=== PATIENT | male | born 1940 | race Caucasian/White ===

== ENCOUNTER → 2016-07-18 | Outpatient (CLI) | payer MEDICARE ==
[2016-07-18 13:20] LABS: MEAN CORPUSCULAR HEMOGLOBIN 30.7 pg (27.0-33.0); MEAN CORPUSCULAR HGB CONC 33.9 g/dl (32.0-36.5); MEAN CORPUSCULAR VOLUME 90.4 fl (80.0-96.0); RED CELL DISTRIBUTION WIDTH 12.2 % (11.5-14.5); WHITE BLOOD COUNT 6.4 K/mm3 (4.0-10.0)
[2016-07-18 13:37] LABS: ALBUMIN 3.9 GM/DL (3.2-5.2); ALBUMIN/GLOBULIN RATIO 1.56 (1.00-1.93); ALKALINE PHOSPHATASE 72 U/L (45-117); ALT/SGPT 29 U/L (12-78); ANION GAP 8 MEQ/L (8-16); AST/SGOT 19 U/L (15-37); BILIRUBIN,TOTAL 0.6 MG/DL (0.2-1.0); BLOOD UREA NITROGEN 16 MG/DL (7-18); CALCIUM LEVEL 8.8 MG/DL (8.8-10.2); CARBON DIOXIDE LEVEL 29 MEQ/L (21-32); CHLORIDE LEVEL 106 MEQ/L (98-107); CREATININE FOR GFR 0.92 MG/DL (0.70-1.30); GLOMERULAR FILTRATION RATE > 60.0 (>42); GLUCOSE, FASTING 96 MG/DL (83-110); POTASSIUM SERUM 4.3 MEQ/L (3.5-5.1); SODIUM LEVEL 143 MEQ/L (136-145); TOTAL PROTEIN 6.4 GM/DL (6.4-8.2)
== END ==
LOC: M SMT 10:46
PROVIDERS: ATTEND Family Medicine
DX: D64.9 Anemia, unspecified (principal); N39.0 Urinary tract infection, site not specified; N40.0 Benign prostatic hyperplasia without lower urinary tract symptoms

== ENCOUNTER → 2016-08-16 | Outpatient (CLI) | payer MEDICARE | LOC: M SMT 13:13 | PROVIDERS: ATTEND Family Medicine | DX: R97.20 Elevated prostate specific antigen [PSA] (principal); N40.0 Benign prostatic hyperplasia without lower urinary tract symptoms ==

== ENCOUNTER → 2016-09-27 | Outpatient (CLI) | payer MEDICARE | LOC: M SMT 09:19 | PROVIDERS: ATTEND Urology | DX: R97.20 Elevated prostate specific antigen [PSA] (principal); N40.0 Benign prostatic hyperplasia without lower urinary tract symptoms ==

== ENCOUNTER → 2016-10-04 | Outpatient (CLI) | payer MEDICARE, BC | LOC: M SMT 10:15 | PROVIDERS: ATTEND Nurse Practitioner Family | DX: R97.20 Elevated prostate specific antigen [PSA] (principal) ==

== ENCOUNTER → 2016-10-16 | Outpatient (REF) | payer MEDICARE, BC | LOC: M SMT 12:45 | PROVIDERS: ATTEND Nurse Practitioner Family | DX: N40.0 Benign prostatic hyperplasia without lower urinary tract symptoms (principal) ==

== ENCOUNTER → 2017-04-06 | Outpatient (CLI) | payer MEDICARE, BC ==
[2017-04-07 14:17] LABS: PSA FREE 1.07 ng/mL; PSA TOTAL 5.1 ng/mL (0.0-4.0)
== END ==
LOC: M SMT 11:34
PROVIDERS: ATTEND Nurse Practitioner Family
DX: R97.20 Elevated prostate specific antigen [PSA] (principal)

== ENCOUNTER 2017-08-23 12:34 | Outpatient (CLI) | payer MEDICARE | END 2017-08-24 | LOC: M RAD 08-24 14:55 | DX: S46.211A Strain of muscle, fascia and tendon of other parts of biceps, right arm, initial encounter (principal); Y92.89 Other specified places as the place of occurrence of the external cause; Y93.9 Activity, unspecified | CPT/HCPCS: 73218 ==

== ENCOUNTER → 2018-04-08 | Outpatient (CLI) | payer MEDICARE ==
[2018-04-10 08:07] LABS: PSA % FREE 30.7 % (.); PSA FREE 1.87 ng/mL; PSA TOTAL 6.1 ng/mL (0.0-4.0)
== END ==
LOC: M SMT 11:25
DX: N40.0 Benign prostatic hyperplasia without lower urinary tract symptoms (principal)
CPT/HCPCS: 84154

== ENCOUNTER → 2018-05-02 | Outpatient (CLI) | payer MEDICARE | LOC: M SMT 15:22 | DX: R10.9 Unspecified abdominal pain (principal); D64.9 Anemia, unspecified; R53.83 Other fatigue | CPT/HCPCS: 71046 ==

== ENCOUNTER → 2018-05-03 | Outpatient (CLI) | payer MEDICARE ==
[2018-05-03 11:54] LABS: HEMATOCRIT 44.1 % (42.0-52.0); HEMOGLOBIN 14.7 g/dl (13.5-17.5); MEAN CORPUSCULAR HEMOGLOBIN 30.3 pg (27.0-33.0); MEAN CORPUSCULAR HGB CONC 33.3 g/dl (32.0-36.5); MEAN CORPUSCULAR VOLUME 90.9 fl (80.0-96.0); PLATELET COUNT, AUTOMATED 196 10^3/uL (150-450); RED BLOOD COUNT 4.85 10^6/uL (4.30-6.10); RED CELL DISTRIBUTION WIDTH 12.2 % (11.5-14.5)
[2018-05-03 12:06] LABS: APPEARANCE, URINE CLEAR (CLEAR); BACTERIA, URINE AUTO NEGATIVE (NEGATIVE); BILIRUBIN, URINE AUTO NEGATIVE (NEGATIVE); BLOOD, URINE BLOOD 2+ (NEGATIVE); COLOR, URINE YELLOW (YELLOW); GLUCOSE, URINE (UA) AUTO NEGATIVE (NEGATIVE); KETONE, URINE AUTO NEGATIVE (NEGATIVE); LEUKOCYTE ESTERASE, URINE AUTO NEGATIVE (NEGATIVE); MUCUS, URINE SMALL (NEGATIVE); NITRITE, URINE AUTO NEGATIVE (NEGATIVE); PROTEIN, URINE AUTO NEGATIVE (NEGATIVE); RBC, URINE AUTO 2 /HPF (0-3); SPECIFIC GRAVITY URINE AUTO 1.018 (1.002-1.035); SQUAMOUS EPITHELIAL CELL UR AU 0 /HPF (0-6); UROBILINOGEN, URINE AUTO 0.2 mg/dL (0.0-2.0); WBC, URINE AUTO 1 /HPF (0-3)
[2018-05-03 12:20] LABS: ESTIMATED AVERAGE GLUCOSE 117 MG/DL (60-110); HEMOGLOBIN A1c 5.7 %
[2018-05-03 16:03] LABS: ALBUMIN/GLOBULIN RATIO 1.48 (1.00-1.93); ALKALINE PHOSPHATASE 63 U/L (45-117); ALT/SGPT 31 U/L (12-78); AMYLASE 69 U/L (25-115); ANION GAP 8 MEQ/L (8-16); AST/SGOT 19 U/L (7-37); BILIRUBIN,TOTAL 0.7 MG/DL (0.2-1.0); BLOOD UREA NITROGEN 17 MG/DL (7-18); CALCIUM LEVEL 8.6 MG/DL (8.8-10.2); CARBON DIOXIDE LEVEL 28 MEQ/L (21-32); CHLORIDE LEVEL 104 MEQ/L (98-107); CREATININE FOR GFR 1.03 MG/DL (0.70-1.30); GLOMERULAR FILTRATION RATE > 60.0 (>42); GLUCOSE, FASTING 93 MG/DL (70-100); POTASSIUM SERUM 4.2 MEQ/L (3.5-5.1); PSA SCREENING 6.88 NG/ML (< 4.0); SODIUM LEVEL 140 MEQ/L (136-145); TOTAL PROTEIN 6.7 GM/DL (6.4-8.2)
== END ==
LOC: M SMT 08:24
DX: R10.9 Unspecified abdominal pain (principal); D64.9 Anemia, unspecified; R53.83 Other fatigue; M51.36 Other intervertebral disc degeneration, lumbar region; Z12.5 Encounter for screening for malignant neoplasm of prostate
CPT/HCPCS: 82150

== ENCOUNTER → 2018-05-09 | Outpatient (CLI) | payer MEDICARE ==
[~2018-05-09] MED LIST: ISOVUE-370 76% 100ML VIAL (Q9967) As Ordered
== END ==
LOC: M RAD 08:35
DX: R10.11 Right upper quadrant pain (principal); R19.01 Right upper quadrant abdominal swelling, mass and lump
CPT/HCPCS: Q9967

== ENCOUNTER → 2018-12-26 | Outpatient (CLI) | payer MEDICARE ==
[2018-12-26 13:23] LABS: HEMATOCRIT 43.7 % (42.0-52.0); HEMOGLOBIN 14.7 g/dl (13.5-17.5); MEAN CORPUSCULAR HEMOGLOBIN 30.8 pg (27.0-33.0); MEAN CORPUSCULAR HGB CONC 33.6 g/dl (32.0-36.5); MEAN CORPUSCULAR VOLUME 91.6 fl (80.0-96.0); PLATELET COUNT, AUTOMATED 178 10^3/uL (150-450); RED BLOOD COUNT 4.77 10^6/uL (4.30-6.10); WHITE BLOOD COUNT 5.5 10^3/uL (4.0-10.0)
[2018-12-26 13:43] LABS: ALBUMIN 3.7 GM/DL (3.2-5.2); ALT/SGPT 26 U/L (12-78); BILIRUBIN,TOTAL 0.7 MG/DL (0.2-1.0); BLOOD UREA NITROGEN 18 MG/DL (7-18); CALCIUM LEVEL 8.9 MG/DL (8.8-10.2); CARBON DIOXIDE LEVEL 29 MEQ/L (21-32); CHLORIDE LEVEL 105 MEQ/L (98-107); CHOLESTEROL LEVEL 132 MG/DL (<200); CREATININE FOR GFR 1.03 MG/DL (0.70-1.30); GLOMERULAR FILTRATION RATE > 60.0 (>42); GLUCOSE, FASTING 93 MG/DL (70-100); HDL CHOLESTEROL 44 MG/DL (>40); LDL CHOLESTEROL 71 MG/DL (<100); NON-HDL-C 88 MG/DL; POTASSIUM SERUM 4.6 MEQ/L (3.5-5.1); PROSTATIC SPECIFIC AG MONITOR 4.51 NG/ML (< 4.00); SODIUM LEVEL 139 MEQ/L (136-145); TESTOSTERONE 665 NG/DL (241-827); THYROID STIMULATING HORMONE 0.797 uIU/ML (0.358-3.740); TOTAL 25(OH) VITAMIN D 23.1 NG/ML (30.0-100.0); TOTAL PROTEIN 6.4 GM/DL (6.4-8.2); TRIGLYCERIDES LEVEL 86 MG/DL (<150)
[2018-12-26 14:19] LABS: HEMOGLOBIN A1c 5.8 %
== END ==
LOC: M SMT 09:11
PROVIDERS: ATTEND Family Medicine
DX: I10 Essential (primary) hypertension (principal); R53.83 Other fatigue; E03.9 Hypothyroidism, unspecified

== ENCOUNTER → 2019-03-28 | Outpatient (REF) | payer MEDICARE | LOC: M LAB REF 10:00 | PROVIDERS: ATTEND Physician Assistant Medical | DX: N39.0 Urinary tract infection, site not specified (principal) ==

== ENCOUNTER → 2019-05-30 | Outpatient (REF) | payer MEDICARE ==
[2019-06-03 10:07] LABS: PSA FREE 1.32 ng/mL
== END ==
LOC: M SMT 18:53 → M LABDRWAD 18:53
PROVIDERS: ATTEND Urology
DX: R97.20 Elevated prostate specific antigen [PSA] (principal)
CPT/HCPCS: 84154; G0463

== ENCOUNTER → 2020-04-01 | Outpatient (CLI) | payer MEDICARE | LOC: M LABSMTC 10:02 | PROVIDERS: ATTEND Orthopaedic Surgery | DX: Z01.812 Encounter for preprocedural laboratory examination (principal); Z20.828 Contact with and (suspected) exposure to other viral communicable diseases ==

== ENCOUNTER → 2020-06-01 | Outpatient (REF) | payer MEDICARE ==
[2020-06-08 19:07] LABS: PSA % FREE 17.4 % (.); PSA FREE 1.13 ng/mL; PSA TOTAL 6.5 ng/mL (0.0-4.0)
== END ==
LOC: M SFHCADAM 13:05
PROVIDERS: ATTEND Nurse Practitioner Women's Health
DX: R97.20 Elevated prostate specific antigen [PSA] (principal)

== ENCOUNTER → 2020-09-22 | Outpatient (CLI) | payer MEDICARE ==
--- NOTE | 2020-09-22 11:11 | REP ---
INDICATION: HTN. COMPARISON: PA and lateral chest dated 05/02/2018. TECHNIQUE: Upright PA and lateral chest. FINDINGS: The lung dodge are clear. Cardiac size is normal. The neri, mediastinum and skeletal structures are unremarkable. IMPRESSION: Essentially negative PA and lateral chest There is no interval change. <Electronically signed by Mayco Nolen > 09/22/20 [id number]
[2020-09-22 12:56] LABS: HEMATOCRIT 44.4 % (42.0-52.0); HEMOGLOBIN 14.5 g/dl (13.5-17.5); MEAN CORPUSCULAR HEMOGLOBIN 30.3 pg (27.0-33.0); MEAN CORPUSCULAR HGB CONC 32.7 g/dl (32.0-36.5); MEAN CORPUSCULAR VOLUME 92.9 fl (80.0-96.0); PLATELET COUNT, AUTOMATED 175 10^3/uL (150-450); RED BLOOD COUNT 4.78 10^6/uL (4.30-6.10); WHITE BLOOD COUNT 7.5 10^3/uL (4.0-10.0)
[2020-09-22 14:14] LABS: ALBUMIN 3.9 GM/DL (3.2-5.2); ALT/SGPT 25 U/L (12-78); BILIRUBIN,TOTAL 0.6 MG/DL (0.2-1.0); BLOOD UREA NITROGEN 21 MG/DL (7-18); CALCIUM LEVEL 9.2 MG/DL (8.8-10.2); CARBON DIOXIDE LEVEL 28 MEQ/L (21-32); CHLORIDE LEVEL 104 MEQ/L (98-107); CHOLESTEROL LEVEL 161 MG/DL (<200); CHOLESTEROL RISK RATIO 2.596 (<5); CREATININE FOR GFR 0.81 MG/DL (0.70-1.30); GLOMERULAR FILTRATION RATE > 60.0 (>42); GLUCOSE, FASTING 96 MG/DL (70-100); HDL CHOLESTEROL 62 MG/DL (>40); LDL CHOLESTEROL 86 MG/DL (<100); NON-HDL-C 99 MG/DL; POTASSIUM SERUM 4.3 MEQ/L (3.5-5.1); PROSTATIC SPECIFIC AG MONITOR 5.18 NG/ML (< 4.00); SODIUM LEVEL 138 MEQ/L (136-145); TESTOSTERONE 594 NG/DL (241-827); THYROID STIMULATING HORMONE 0.798 uIU/ML (0.358-3.740); TOTAL PROTEIN 6.4 GM/DL (6.4-8.2); TRIGLYCERIDES LEVEL 63 MG/DL (<150)
[2020-09-22 15:04] LABS: HEMOGLOBIN A1c 5.5 %
== END ==
LOC: M ADAMS 08:31
PROVIDERS: ATTEND Family Medicine
DX: R97.20 Elevated prostate specific antigen [PSA] (principal); R53.83 Other fatigue; E03.9 Hypothyroidism, unspecified; I10 Essential (primary) hypertension; Z79.899 Other long term (current) drug therapy

== ENCOUNTER → 2020-10-11 | Outpatient (CLI) | payer MEDICARE ==
--- NOTE | 2020-10-11 22:03 | ECGEPIP ---
[facility] Test Date: 2020-10-11 Pat Name: TENNILLE LARA Department: Room: - Gender: Male Park Manager: [place] : 1940 Requested By: Vivian Lara Order Number: [id number] Reading MD: Zi King Measurements Intervals [place] Rate: 63 P: 65 UT: 164 QRS: 4 QRSD: 78 T: 43 QT: 386 QTc: 395 Interpretive Statements Normal sinus rhythm LA conduction disturbance Somewhat low voltages with slow precordial R wave progression and minuscule i inferior Q waves; body habitus versus pulmonary disease No significant change from 04/04/16 Electronically Signed on 10-11-2020 22:02:44 EDT by Zi King
== END ==
LOC: M EKG 13:38
PROVIDERS: ATTEND Family Medicine
DX: R53.83 Other fatigue (principal); E78.5 Hyperlipidemia, unspecified; I10 Essential (primary) hypertension; R97.20 Elevated prostate specific antigen [PSA]

== ENCOUNTER → 2020-12-14 | Outpatient (CLI) | payer MEDICARE ==
[2020-12-15 23:07] LABS: PSA % FREE 33.6 % (.); PSA FREE 2.45 ng/mL; PSA TOTAL 7.3 ng/mL (0.0-4.0)
== END ==
LOC: M LAB 13:12
PROVIDERS: ATTEND Nurse Practitioner Family
DX: R97.20 Elevated prostate specific antigen [PSA] (principal)

== ENCOUNTER → 2021-01-05 | Outpatient (REF) | payer MEDICARE | LOC: M SMT 12:40 | PROVIDERS: ATTEND Nurse Practitioner Family | DX: N40.1 Benign prostatic hyperplasia with lower urinary tract symptoms (principal); R97.20 Elevated prostate specific antigen [PSA] | CPT/HCPCS: 36415; 51798; 87086; G0463 ==

== ENCOUNTER → 2021-01-05 | Outpatient (CLI) | payer MEDICARE | LOC: M PLALAB 13:13 | PROVIDERS: ATTEND Nurse Practitioner Family | DX: R97.20 Elevated prostate specific antigen [PSA] (principal) ==

== ENCOUNTER → 2021-08-25 | Outpatient (CLI) | payer MEDICARE ==
[2021-08-25 10:17] LABS: HEMATOCRIT 43.5 % (42.0-52.0); HEMOGLOBIN 14.3 g/dl (13.5-17.5); MEAN CORPUSCULAR HEMOGLOBIN 30.5 pg (27.0-33.0); MEAN CORPUSCULAR HGB CONC 32.9 g/dl (32.0-36.5); MEAN CORPUSCULAR VOLUME 92.8 fl (80.0-96.0); PLATELET COUNT, AUTOMATED 191 10^3/uL (150-450); RED BLOOD COUNT 4.69 10^6/uL (4.30-6.10); WHITE BLOOD COUNT 7.5 10^3/uL (4.0-10.0)
[2021-08-25 10:27] LABS: INR 0.97; PROTHROMBIN TIME 13.3 SECONDS (12.7-14.5)
[2021-08-25 10:38] LABS: HEMOGLOBIN A1c 5.6 %
[2021-08-25 11:04] LABS: ALBUMIN 3.9 GM/DL (3.2-5.2); ALT/SGPT 29 U/L (12-78); BILIRUBIN,TOTAL 0.8 MG/DL (0.2-1.0); BLOOD UREA NITROGEN 20 MG/DL (7-18); CALCIUM LEVEL 8.7 MG/DL (8.8-10.2); CARBON DIOXIDE LEVEL 31 MEQ/L (21-32); CHLORIDE LEVEL 104 MEQ/L (98-107); CHOLESTEROL LEVEL 148 MG/DL (<200); CHOLESTEROL RISK RATIO 2.508 (<5); CREATININE FOR GFR 0.96 MG/DL (0.70-1.30); GLOMERULAR FILTRATION RATE > 60.0 (>42); GLUCOSE, FASTING 101 MG/DL (70-100); HDL CHOLESTEROL 59 MG/DL (>40); LDL CHOLESTEROL 74 MG/DL (<100); NON-HDL-C 89 MG/DL; POTASSIUM SERUM 4.5 MEQ/L (3.5-5.1); SODIUM LEVEL 141 MEQ/L (136-145); THYROID STIMULATING HORMONE 0.998 uIU/ML (0.358-3.740); TOTAL PROTEIN 6.5 GM/DL (6.4-8.2); TRIGLYCERIDES LEVEL 73 MG/DL (<150)
[2021-08-25 11:59] LABS: TESTOSTERONE 678 NG/DL (241-827)
== END ==
LOC: M PLALAB 07:42
PROVIDERS: ATTEND Family Medicine
DX: I10 Essential (primary) hypertension (principal); Z79.01 Long term (current) use of anticoagulants; R97.20 Elevated prostate specific antigen [PSA]

== ENCOUNTER → 2021-10-17 | Outpatient (REF) | payer MEDICARE | LOC: M SFHCDERM 18:46 | PROVIDERS: ATTEND Nurse Practitioner Family | DX: C44.42 Squamous cell carcinoma of skin of scalp and neck (principal) ==

== ENCOUNTER → 2021-10-29 | Outpatient (CLI) | payer MEDICARE ==
[2021-10-29 09:17] LABS: HEMATOCRIT 44.5 % (42.0-52.0); HEMOGLOBIN 14.7 g/dl (13.5-17.5); MEAN CORPUSCULAR HEMOGLOBIN 30.7 pg (27.0-33.0); MEAN CORPUSCULAR VOLUME 92.9 fl (80.0-96.0); PLATELET COUNT, AUTOMATED 188 10^3/uL (150-450); RED BLOOD COUNT 4.79 10^6/uL (4.30-6.10)
[2021-10-29 09:54] LABS: ALT/SGPT 29 U/L (12-78); BILIRUBIN,TOTAL 0.7 MG/DL (0.2-1.0); BLOOD UREA NITROGEN 19 MG/DL (7-18); CALCIUM LEVEL 8.9 MG/DL (8.8-10.2); CARBON DIOXIDE LEVEL 32 MEQ/L (21-32); CHLORIDE LEVEL 104 MEQ/L (98-107); CHOLESTEROL LEVEL 141 MG/DL (<200); GLOMERULAR FILTRATION RATE > 60.0 (>42); GLUCOSE, FASTING 107 MG/DL (70-100); HDL CHOLESTEROL 53 MG/DL (>40); LDL CHOLESTEROL 75 MG/DL (<100); NON-HDL-C 88 MG/DL; POTASSIUM SERUM 4.4 MEQ/L (3.5-5.1); SODIUM LEVEL 140 MEQ/L (136-145); THYROID STIMULATING HORMONE 0.874 uIU/ML (0.358-3.740); TOTAL PROTEIN 6.5 GM/DL (6.4-8.2); TRIGLYCERIDES LEVEL 63 MG/DL (<150)
[2021-10-29 10:10] LABS: HEMOGLOBIN A1c 5.7 %
[2021-10-31 10:25] LABS: TESTOSTERONE 817 NG/DL (241-827)
== END ==
LOC: M LAB 08:28
PROVIDERS: ATTEND Family Medicine
DX: I45.19 Other right bundle-branch block (principal); R00.1 Bradycardia, unspecified; R94.31 Abnormal electrocardiogram [ECG] [EKG]; R53.83 Other fatigue; I10 Essential (primary) hypertension; E03.9 Hypothyroidism, unspecified

== ENCOUNTER → 2022-01-04 | Outpatient (REF) | payer MEDICARE | LOC: M SFHCDERM 14:03 | PROVIDERS: ATTEND Dermatology | DX: C44.42 Squamous cell carcinoma of skin of scalp and neck (principal) ==

== ENCOUNTER → 2022-01-13 | Outpatient (CLI) | payer MEDICARE ==
[~2022-01-13] MED LIST changes: +DOXA1TAB41; +DUTASTERIDE; -ISOVUE-370 76% 100ML VIAL (Q9967) As Ordered; +LABE100T4; +PRAV40TA2; +TRIA1CR80 TOP
== END ==
LOC: M ONCR 11:01
PROVIDERS: ATTEND General Practice
DX: C44.42 Squamous cell carcinoma of skin of scalp and neck (principal); Z87.891 Personal history of nicotine dependence; Z80.0 Family history of malignant neoplasm of digestive organs

== ENCOUNTER 2022-01-18 07:48 | Outpatient (RCR) | payer MEDICARE ==
[~2022-01-18 07:48] MED LIST changes: -LABE100T4; +LABE100T6; -TRIA1CR80 TOP
[2022-01-18] MEDS ORDERED: TRIA1CR80 TOP (14:51)
== END 2022-02-05 ==
LOC: M ONCR 07:48
PROVIDERS: ATTEND General Practice
DX: C44.42 Squamous cell carcinoma of skin of scalp and neck (principal)

== ENCOUNTER → 2022-01-20 | Outpatient (CLI) | payer MEDICARE ==
[~2022-01-20] MED LIST changes: +LABE100T4; -LABE100T6; +TRIA1CR80 TOP
== END ==
LOC: M LAB 11:30
PROVIDERS: ATTEND Urology
DX: R97.20 Elevated prostate specific antigen [PSA] (principal)

== ENCOUNTER → 2022-03-08 | Outpatient (RCR) | payer MEDICARE ==
[~2022-03-08] MED LIST changes: -LABE100T4; +LABE100T6
== END ==
LOC: M ONCR 02-07 15:16
PROVIDERS: ATTEND General Practice
DX: C44.42 Squamous cell carcinoma of skin of scalp and neck (principal)

== ENCOUNTER 2022-03-24 14:59 | Outpatient (RCR) | payer MEDICARE | END 2022-04-07 | LOC: M ONCR 14:59 | PROVIDERS: ATTEND General Practice | DX: C44.42 Squamous cell carcinoma of skin of scalp and neck (principal) ==

== ENCOUNTER → 2022-04-25 | Outpatient (CLI) | payer MEDICARE | LOC: M ONCR 15:13 | PROVIDERS: ATTEND General Practice | DX: L59.8 Other specified disorders of the skin and subcutaneous tissue related to radiation (principal) ==

== ENCOUNTER → 2022-10-05 | Outpatient (CLI) | payer MEDICARE | LOC: M ONCR 09:56 | PROVIDERS: ATTEND General Practice | DX: C44.42 Squamous cell carcinoma of skin of scalp and neck (principal); D48.5 Neoplasm of uncertain behavior of skin; Z79.899 Other long term (current) drug therapy; Z86.16 Personal history of COVID-19; Z87.891 Personal history of nicotine dependence; Z92.3 Personal history of irradiation ==

== ENCOUNTER → 2023-02-05 | Outpatient (REF) | payer MEDICARE | LOC: M LABDRWAD 12:33 | PROVIDERS: ATTEND Physician Assistant | DX: R97.20 Elevated prostate specific antigen [PSA] (principal) ==

== ENCOUNTER → 2023-08-28 | Outpatient (CLI) | payer MEDICARE ==
[2023-08-28 09:44] LABS: HEMATOCRIT 41.2 % (42.0-52.0); MEAN CORPUSCULAR HEMOGLOBIN 31.5 pg (27.0-33.0); MEAN CORPUSCULAR VOLUME 92.6 fl (80.0-96.0); PLATELET COUNT, AUTOMATED 172 10^3/uL (150-450); RED BLOOD COUNT 4.45 10^6/uL (4.30-6.10); WHITE BLOOD COUNT 7.4 10^3/uL (4.0-10.0)
[2023-08-28 09:55] LABS: HEMOGLOBIN A1c 5.5 % (4.0-6.0)
[2023-08-28 09:56] LABS: INR 1.04; PROTHROMBIN TIME 13.3 SECONDS (12.5-14.5)
[2023-08-28 10:10] LABS: ALBUMIN 3.9 G/DL (3.2-5.2); ALKALINE PHOSPHATASE 61 U/L (46-116); ALT/SGPT 23 U/L (7.0-40); AST/SGOT 20 U/L (<34); BLOOD UREA NITROGEN 21 MG/DL (9-23); CALCIUM LEVEL 8.8 MG/DL (8.3-10.6); CARBON DIOXIDE LEVEL 31 MMOL/L (20-31); CHLORIDE LEVEL 104 MMOL/L (98-107); CHOLESTEROL LEVEL 133 MG/DL (<200); CHOLESTEROL RISK RATIO 2.48 (<5); CREATININE FOR GFR 0.93 MG/DL (0.70-1.30); GLOMERULAR FILTRATION RATE > 60.0 (>35); GLUCOSE, FASTING 98 MG/DL (74-106); HDL CHOLESTEROL 53.6 MG/DL (>40); LDL CHOLESTEROL 65.6 MG/DL (<100); NON-HDL-C 79.4 MG/DL; POTASSIUM SERUM 4.5 MMOL/L (3.5-5.1); SODIUM LEVEL 139 MMOL/L (136-145); TOTAL PROTEIN 6.1 G/DL (5.7-8.2); TRIGLYCERIDES LEVEL 69 MG/DL (<150)
== END ==
LOC: M RAD 08:30
PROVIDERS: ATTEND Family Medicine
DX: I10 Essential (primary) hypertension (principal); Z79.01 Long term (current) use of anticoagulants

== ENCOUNTER → 2023-08-31 | Outpatient (CLI) | payer MEDICARE ==
[~2023-08-31] MED LIST changes: +ACET1TAB55 PO; +AVOD0.5C PO; -DOXA1TAB41; +DOXA1TAB41 PO; -LABE100T6; +LABE100T6 PO; +MELO7.5T35 PO; -PRAV40TA2; +PRAV40TA2 PO; +PRED1TABL PO
== END ==
LOC: M RAD 14:57
PROVIDERS: ATTEND Orthopaedic Surgery
DX: M79.662 Pain in left lower leg (principal)

== ENCOUNTER 2023-09-11 11:43 | Day surgery (SDC) | payer MEDICARE ==
[~2023-09-11] VITALS: Ht 177.8 cm; Wt 101.2 kg
[~2023-09-11 11:43] MED LIST changes: +fentaNYL 100 MCG/2 ML INJECTION As Ordered ONE
[2023-09-11] MEDS: ATROPINE SULFATE 1% OPHTH SOLN 2ML BTL OD SCH (12:21)
[2023-09-11] MEDS: OFLOXACIN 0.3 % (OCUFLOX) OPTH SOL 5ML OD SCH (12:21)
[2023-09-11] MEDS: TROPICAMIDE 1% OPHTH SOLN 15ML OD SCH (12:21)
[2023-09-11] MEDS: PHENYLEPHRINE 2.5% OPHTH SOL 2ML OD SCH (12:21)
[2023-09-11] MEDS: PROPARACAINE 0.5% OPHTH SOL 15ML OD ONE (12:21)
[2023-09-11] MEDS: LIDOCAINE 1% SDV 5ML VIAL As Ordered ONE (12:59)
[2023-09-11] MEDS: BSS IRR 500ML/OMIDRIA 4ML IRR BAG (OR ONLY) As Ordered ONE (13:00)
[2023-09-11] MEDS: CEFUROXIME 1MG/0.1ML INTRACAMERAL INJ As Ordered ONE (13:00)
[2023-09-11 13:19] VITALS: BP 152/78; TEMP 98; O2SAT 97
== END 2023-09-11 13:48 | disposition home or self-care (01) ==
LOC: M SDC 11:43
PROVIDERS: ATTEND Ophthalmology
DX: H25.11 Age-related nuclear cataract, right eye (principal); I10 Essential (primary) hypertension; E78.00 Pure hypercholesterolemia, unspecified; Z79.899 Other long term (current) drug therapy; Z79.52 Long term (current) use of systemic steroids; N40.0 Benign prostatic hyperplasia without lower urinary tract symptoms; Z86.73 Personal history of transient ischemic attack (TIA), and cerebral infarction without residual deficits; Z87.891 Personal history of nicotine dependence
CPT/HCPCS: 66984; J0697; J1097; J3010; V2632

== ENCOUNTER → 2024-02-27 | Outpatient (REF) | payer MEDICARE ==
[~2024-02-27] MED LIST changes: -fentaNYL 100 MCG/2 ML INJECTION As Ordered ONE
== END ==
LOC: M SFHCADAM 11:00
PROVIDERS: ATTEND Physician Assistant
DX: R97.20 Elevated prostate specific antigen [PSA] (principal)

== ENCOUNTER → 2024-10-17 | Outpatient (REF) | payer MEDICARE ==
[2024-10-17 18:04] LABS: HEMATOCRIT 43.1 % (42.0-52.0); HEMOGLOBIN 14.2 g/dl (13.5-17.5); MEAN CORPUSCULAR HEMOGLOBIN 30.9 pg (27.0-33.0); MEAN CORPUSCULAR HGB CONC 32.9 g/dl (32.0-36.5); MEAN CORPUSCULAR VOLUME 93.9 fl (80.0-96.0); PLATELET COUNT, AUTOMATED 191 10^3/uL (150-450); RED BLOOD COUNT 4.59 10^6/uL (4.30-6.10); WHITE BLOOD COUNT 8.3 10^3/uL (4.0-10.0)
[2024-10-17 18:15] LABS: HEMOGLOBIN A1c 5.2 % (4.0-6.0)
[2024-10-17 18:21] LABS: PSA SCREENING 9.9 NG/ML (< 4.00)
[2024-10-17 18:23] LABS: ALBUMIN 3.8 G/DL (3.2-5.2); BILIRUBIN,TOTAL 0.8 MG/DL (0.3-1.2); CALCIUM LEVEL 9.2 MG/DL (8.3-10.6); CHOLESTEROL RISK RATIO 2.84 (<5); CREATININE FOR GFR 0.95 MG/DL (0.70-1.30); GLOMERULAR FILTRATION RATE 80.4 (>35); HDL CHOLESTEROL 52.8 MG/DL (>40); LDL CHOLESTEROL 81.2 MG/DL (<100); NON-HDL-C 97.2 MG/DL; POTASSIUM SERUM 4.4 MMOL/L (3.5-5.1); TOTAL PROTEIN 6.3 G/DL (5.7-8.2)
[2024-10-17 18:25] LABS: THYROID STIMULATING HORMONE 0.629 uIU/ML (0.55-4.78)
== END ==
LOC: M LABDRWAD 17:23
PROVIDERS: ATTEND Family Medicine
DX: I10 Essential (primary) hypertension (principal); E03.9 Hypothyroidism, unspecified; R53.83 Other fatigue; Z12.5 Encounter for screening for malignant neoplasm of prostate
CPT/HCPCS: 36415; 80053; 80061; 83036; 84403; 84443; 85027; G0103

== ENCOUNTER → 2025-03-25 | Outpatient (REF) | payer MEDICARE ==
[~2025-03-25] MED LIST changes: -PRAV40TA2 PO; +PRAV40TA85 PO; +PRED-1142 PO; -PRED1TABL PO
== END ==
LOC: M SFHCADAM 10:19
PROVIDERS: ATTEND Physician Assistant
DX: R97.20 Elevated prostate specific antigen [PSA] (principal)